=== PATIENT | male | born 1975 | race Hispanic/Latino ===

== ENCOUNTER 2020-04-24 14:13 | Emergency (ER) | payer BC, SELFPAY ==
[2020-04-24] MEDS ORDERED: TETANUS, DIPHTHERIA TOX,ADULT (TDVAX) 0.5 ML VIAL IM ONE (14:29)
--- NOTE | 2020-04-24 14:35 | RAD ---
EXAM: 3 views of the left thumb HISTORY: Finger pain after hitting with a hammer COMPARISON: None FINDINGS: There is no evidence of acute fracture or dislocation. Mild diffuse soft tissue swelling is seen. No degenerative changes are present. No radiopaque foreign body is seen. IMPRESSION: No evidence of acute osseous abnormality.
[2020-04-24] MEDS ORDERED: Lidocaine 1% (PF) 30 ML VIAL ONE (14:45)
[2020-04-24] MEDS ORDERED: Bacitracin 1 PK ONE (15:09)
== END 2020-04-24 15:21 | disposition home or self-care (01) ==
LOC: NAV ERS 14:13
DX: S61.012A Laceration without foreign body of left thumb without damage to nail, initial encounter (principal); K21.9 Gastro-esophageal reflux disease without esophagitis; E78.5 Hyperlipidemia, unspecified; E78.00 Pure hypercholesterolemia, unspecified; I10 Essential (primary) hypertension; F17.210 Nicotine dependence, cigarettes, uncomplicated; Z79.899 Other long term (current) drug therapy; W22.8XXA Striking against or struck by other objects, initial encounter
CPT/HCPCS: 12001; 90471; 99406; J2001